=== PATIENT | female | born 1935 | race Caucasian/White ===

== ENCOUNTER 2019-03-15 15:30 | Observation (INO) ==
[2019-03-15] MEDS ORDERED: cefTRIAXone 1,000 MG in 0.9 % Sodium Chloride Mini Bag 100 ML IVPB ONE (19:57)
--- NOTE | 2019-03-15 20:21 | Emergency Department Note ---
Disposition Clinical Impression: Surgical site infection, Chest wall abscess, Cellulitis of chest wall Disposition: Admitted As Inpatient Referrals: Sky,Betzaida Stephenson CNP [Primary Care Provider] - Forms: ED Satisfaction Letter, Work/School Release Time of Disposition: 20:54 General Adult HPI - General Chief complaint: ED General Medical Stated complaint: Mastectomy incision infected Time Seen by Provider: 03/15/19 19:32 Source: patient Limitations: no limitations Nursing Notes Reviewed: Yes Vital Signs Reviewed: Yes - History of Present Illness HPI Narrative: Patient presents emergency Department with chief complaint of progressively worsening redness and swelling of her mastectomy site. Patient states 3-1/2 weeks ago she had mastectomy for breast cancer, she is not currently getting chemotherapy or radiation she states that over the last week she has had progressively increasing redness and swelling, started draining yesterday, with now increased swelling medially. She contacted her surgical office who referred her to the ER. She denies headache neck pain chest pain or shortness of breath she states that the area is sore but that she does not feel like she needs an ything for it she has had no fevers no chills. She denies abdominal pain nausea or vomiting denies leg pain or leg swelling. Denies any other acute concerns. Pain Scale: 5 - Related Data Home Medications Medication Instructions Recorded Confirmed Acetaminophen [Tylenol] 650 mg PO Q6HR PRN 02/05/19 02/20/19 Levothyroxine [Synthroid] 125 mcg PO DAILY 02/05/19 02/20/19 Lisinopril [Zestril] 20 mg PO DAILY 02/05/19 02/20/19 Simvastatin [Zocor] 20 mg PO HS 02/05/19 02/20/19 Tramadol HCl [Ultram] 50 mg PO QID PRN 02/05/19 02/20/19 hydroCHLOROthiazide 12.5 mg PO DAILY 02/05/19 02/20/19 [Hydrochlorothiazide] Allergies Allergy/AdvReac Type Severity Reaction Status Date / Time No Known Allergies Allergy Verified 02/20/19 07:18 All systems ED: reviewed and negative except as stated. Review of Systems: As Per HPI Past Medical History - Past Medical History Medical history: Reports: arthritis, cancer, fibromyalgia, hypertension, thyroid disease, other Surgical history: Reports: orthopedic, other, other Psychiatric history: Reports: no psych history - Social History Smoking Status: Never smoker Smokeless Tobacco Status: No Alcohol use: Reports: none Drug use: Reports: none Physical Exam - General Limitations: no limitations General appearance: alert, in no apparent distress - Head Head exam: atraumatic, normocephalic - Eye Eye exam: Present: normal appearance, PERRL - ENT ENT exam: normal exam, normal oropharynx - Neck Neck exam: Present: normal inspection, full ROM - Chest Chest inspection: Present: symmetric chest wall rise, tenderness, rash, abscess, other (The entire anterior and lateral chest wall is highly erythematous, expanding approximately 5 cm in all directions from her mastectomy site. Along the anterolateral aspect there is a small amount of weeping, with some increased induration along this region, medially, there is approximately a 5 x 6 area of induration and fluctuance, without evidence of wound dehiscence, but underlying the mastectomy incision site. There is some mild associated right axillary lymphadenopathy. No palpable crepitus no necrosis no lymphangitis.). Absent: normal inspection - Respiratory Respiratory exam: Present: normal lung sounds bilaterally, respiratory distress - Cardiovascular Cardiovascular exam: Present: regular rate, normal rhythm - Abdominal Exam Abdominal exam: Present: soft, Non-Tender - Extremities Exam Extremities exam: Present: normal inspection - Expanded Lower Extremity Exam Neurovascular/Tendon exam: Present: normal capillary refill. Absent: pulse deficit, motor deficit, sensory deficit - Back Exam Back exam: Present: normal inspection, full ROM - Neurological Exam Neurological exam: Present: alert, oriented X3, CN II-XII intact - Skin Skin exam: Present: warm, dry, intact, rash, erythema (On chest wall as described above). Absent: normal color Course Vital Signs Temperature 98.3 F 03/15/19 15:58 Pulse Rate 58 03/15/19 15:58 Respiratory Rate 16 03/15/19 15:58 Blood Pressure 185/82 03/15/19 15:58 O2 Sat by Pulse Oximetry 97 03/15/19 15:58 Temperature 98.3 F 03/15/19 15:58 Pulse Rate 58 03/15/19 15:58 Respiratory Rate 16 03/15/19 15:58 Blood Pressure 185/82 03/15/19 15:58 O2 Sat by Pulse Oximetry 97 03/15/19 15:58 Oxygen Delivery Oxygen Delivery Room Air Medical Decision Making - MDM Narrative Medical decision making narrative: The patient had an IV placed CBC basic metabolic profile blood cultures were ordered. She was given IV Rocephin and IV vancomycin. She was offered pain medication which she declined. After my evaluation I contacted surgery Dr. Blankenship, who will come and evaluate the patient in the emergency department. Patient seen by surgery limit this patient for further management. - Medical Records Medical records reviewed: Yes I reviewed the patient's medical records.
--- NOTE | 2019-03-15 20:51 | Acute Care Surgery H&P ---
Date of Encounter: 03/15/19 Time of Encounter: 20:40 Assessment and Plan (1) Infection of superficial incisional surgical site after procedure Current Visit: Yes Status: Acute The assessment and plan as outlined above was discussed with the patient and/or family members who expressed understanding and agreement. All questions were answered. The patient has a 8 cm x 6 cm abscess at the mastectomy surgical site. This will require open incision and drainage as well as lavage and deep tissue cultures. Qualifiers: Encounter type: initial encounter Qualified Code(s): T81.41XA - Infection following a procedure, superficial incisional surgical site, initial encounter History of Present Illness Chief complaint: Abscess right mastectomy site HPI: Ms. Fields is a 83 year old female Who underwent simple mastectomy and sentinel lymph node biopsy 3 weeks ago. She is a T2 N0 with microscopic focus in 1 lymph node. She initially had drains placed these were removed in 1 week. She did well until about a week ago when she developed some pain along the mastectomy site and she actually fell several days ago. She now presents with an 8 cm swelling on the medial aspect of the mastectomy incision. This was prepped with Betadine and I injected a small amount of lidocaine the skin and I introduced an aspiration needle into the fluid collection and aspirated liam pus. She will require incision and drainage of the main operating room with deep cultures and lavage. We will plan to proceed later this evening. Past Med Surg Social Fam HX - Past Medical History Medical history: arthritis, cancer, fibromyalgia, hypertension, thyroid disease, other Additional medical history: malignant neoplasm of upper-inner quadrant of right female breast, unspecified estrogen receptor status. hypothyroidism. adjustment disorder. myositis. hx of phlebitis. squamous cell carcinoma Psychiatric history: no psych history - Past Surgical History Surgical History: orthopedic, other, other Additional surgical history: right carpal tunnel surgery. right leg vein stripping. cervical vertebrae repair. EGD. right mastectomy - Social History Smoking Status: Never smoker Smokeless Tobacco Status: No Alcohol use: none Drug use: none Medications and Allergies Acetaminophen [Tylenol] 650 mg PO Q6HR PRN 02/05/19 [History] Levothyroxine [Synthroid] 125 mcg PO DAILY 02/05/19 [History] Lisinopril [Zestril] 20 mg PO DAILY 02/05/19 [History] Simvastatin [Zocor] 20 mg PO HS 02/05/19 [History] Tramadol HCl [Ultram] 50 mg PO QID PRN 02/05/19 [History] hydroCHLOROthiazide [Hydrochlorothiazide] 12.5 mg PO DAILY 02/05/19 [History] Allergy/AdvReac Type Severity Reaction Status Date / Time No Known Allergies Allergy Verified 02/20/19 07:18 Review of Systems All systems PM: The remainder of the systems were reviewed and are negative General Surgery Exam Initial Vital Signs Temp Pulse Resp BP Pulse Ox 98.3 F 58 16 185/82 97 03/15/19 15:58 03/15/19 15:58 03/15/19 15:58 03/15/19 15:58 03/15/19 15:58 - General physical appearance well developed, well nourished, no distress - Neck no masses, no bruits, trachea midline, no lymphadectomy, no venous distension - Respiratory normal expansion, normal respiratory effort, clear to percussion, clear to auscultation - Cardiovascular Cardiovascular exam: Present: RRR, no murmurs/rubs/gallops - Abdomen Abdomen general surgery: Present: bowel sounds present, soft, non tender - Incision Incision: Present: red, swollen (Fluctuant area medially was sterilely aspirated and demonstrated pus) - Neurologic Present: CN 2-12 grossly intact, normal coordination, normal sensation - Psychiatric Psychiatric general surgery: Present: appropriate, oriented to person, oriented to place, oriented to time, speech is normal, memory intact Results - Labs All other labs normal.
--- NOTE | 2019-03-15 21:17 | Anesthesia Evaluation PreOp ---
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 right carpal tunnel surgery. right leg vein stripping. cervical vertebrae repair. EGD.), Psuedocholineserase Def. (Right mastectomy/axially ln dissection 02-20-19,) Alcohol Use: none Drug use: none Medications and Allergies Acetaminophen [Tylenol] 650 mg PO Q6HR PRN 02/05/19 [History] Levothyroxine [Synthroid] 125 mcg PO DAILY 02/05/19 [History] Lisinopril [Zestril] 20 mg PO DAILY 02/05/19 [History] Simvastatin [Zocor] 20 mg PO HS 02/05/19 [History] Tramadol HCl [Ultram] 50 mg PO QID PRN 02/05/19 [History] hydroCHLOROthiazide [Hydrochlorothiazide] 12.5 mg PO DAILY 02/05/19 [History] Allergy/AdvReac Type Severity Reaction Status Date / Time No Known Allergies Allergy Verified 02/20/19 07:18 - Meds/Allergy Pre-op Review Medications Reviewed: Yes Allergies Reviewed: Yes Beta Blockers on Current Med List: No Anesthesia Results - Labs 03/15/19 20:46 03/15/19 20:46 Laboratory Tests 01/09/19 02/15/19 02/15/19 09:12 08:41 08:41 WBC 4.2 L Hgb 12.1 Hct 38.9 Plt Count 106 L Sodium 140 Potassium 3.9 Chloride 104 Carbon Dioxide 26 BUN 19 Creatinine 1.07 Est GFR ( Amer) 59 L Est GFR (Non-Af Amer) 49 L BUN/Creatinine Ratio 20 Glucose 88 Calculated Osmolality 292 Calcium 9.6 - Imaging EKG: report reviewed, image reviewed (SINUS RHYTHM INCOMPLETE RIGHT BUNDLE BRANCH BLOCK POSSIBLE LEFT VENTRICULAR HYPERTROPHY) Anesthesia Exam Last Vital Signs Temp 98.3 F 03/15/19 15:58 Pulse 64 03/15/19 20:50 Resp 16 03/15/19 20:50 BP 177/94 03/15/19 20:50 Pulse Ox 100 03/15/19 20:50 Weight: 52 kg - HEENT Mallampati: II Teeth: Edentulous Oral Opening: Greater than 3 - DENTAL SERVICE CHIEF LOC: Oriented - Cardiac Rhythm: Regular Murmur: None - Pulmonary Breath Sounds: bilateral Clear Respiratory Effort: Symmetrical Anesthesia Assess/Plan ASA Score: 3 Level of consciousness: Cooperative Anesthetic Plan: General Monitoring Plan: Standard Monitors Recovery Plan: PACU
[2019-03-15 21:21] LABS: Basophils # 0.1 K/mcL (0.0-0.2); Basophils % 0.9 %; Eosinophils # 0.4 K/mcL (0.0-0.6); Eosinophils % 7.1 %; Hematocrit 35.1 % (35.3-44.9); Hemoglobin 11.1 g/dL (11.5-15.4); Immature Granulocytes % 0.7 % (0-4); Lymphocytes # 2.1 K/mcL (0.6-4.6); Lymphocytes % 36.6 %; Mean Corpuscular HGB Conc 31.6 g/dL (31.6-35.5); Mean Corpuscular Hemoglobin 29.4 pg (28.0-33.3); Mean Corpuscular Volume 92.9 fL (83.0-100.0); Mean Platelet Volume 9.8 fL (9.4-12.4); Monocytes # 0.8 K/mcL (0.0-1.3); Monocytes % 13.2 %; Neutrophils # 2.4 K/mcL (1.6-8.9); Platelet Count 131 K/mcL (140-400); Red Blood Count 3.78 M/mcL (3.82-4.97); Red Cell Distribution Width 12.1 % (11.5-14.5); Segmented Neutrophils % 41.5 %; White Blood Count 5.7 K/mcL (4.3-11.1)
[2019-03-15] MEDS ORDERED: *HR* FentaNYL (PF) 100 MCG/2 ML VIAL ONE (21:23)
[2019-03-15] MEDS ORDERED: *HR* Propofol 200 MG/20 ML VIAL IVP ONE (21:23)
[2019-03-15] MEDS ORDERED: Lidocaine -MPF 2% 2 ML VIAL ONE (21:30)
[2019-03-15 21:31] LABS: Potassium 4.6 mEq/L (3.5-5.1)
[2019-03-15 21:32] LABS: Calcium 9.3 mg/dL (8.6-10.3)
[2019-03-15] MEDS ORDERED: traMADol 50 MG TABLET PO PRN (23:07)
[2019-03-15] MEDS ORDERED: Dexamethasone 4 MG/ML VIAL ONE (23:20)
[2019-03-15] MEDS ORDERED: Ondansetron 4 MG/2 ML VIAL ONE (23:20)
[2019-03-15] MEDS ORDERED: EPHEDrine 50 MG/ML VIAL ONE (23:28)
--- NOTE | 2019-03-15 23:45 | Operative Note ---
Date of procedure: 03/15/19 Pre-op diagnosis: Right mastectomy abscess Post-op diagnosis: same Procedure: Incision and drainage of right mastectomy abscess. Antibiotic lavage Anesthesia: FERMIN Surgeon: Haja Blankenship Was there an employment assistant present: No Estimated blood loss (cc): 10 Specimen: Aerobic and anaerobic cultures Condition: stable Disposition: PACU Procedure in Detail: In the emergency room I evaluated the patient and aspirated the fluid collection under sterile conditions. I removed 20 mL of pus. At that point I decided to perform a formal incision and drainage in the operating room secondary to patient discomfort. After informed consent the patients taking major operating suite placed in the supine position and given adequate general endotracheal anesthesia. The patient was identified and the lateralizing moses was identified. Timeout was taken. I made an incision overlying the large fluid collection medially. I made a 6 cm incision I removed about 30 mL of creamy white pus. I obtained aerobic and anaerobic cultures from the deep wound. There was no necrotic tissue. There is also an area of skin breakdown on the small area of fluctuance on the lateral portion the incision. I opened this and there was no pus only lymphatic fluid. Both areas were manually debrided with a lap sponge and then I used the Ortho- lav suction lavage with antibiotic. Once both cavities were fully lavage I decided to leave the skin open in anticipation of using a negative pressure wound dressing in the near future. Both wounds were packed with iodoform. The patient tolerated the procedure well and was transferred to recovery in stable condition
--- NOTE | 2019-03-16 00:24 | Anesthesia Evaluation Post Op ---
Date of Encounter: 03/16/19 Time of Encounter: 00:24 - Vital Signs Vital Signs: Last Vital Signs Temp 98.2 F 03/16/19 00:22 Pulse 55 03/16/19 00:22 Resp 12 03/16/19 00:22 BP 161/80 03/16/19 00:22 Pulse Ox 97 03/16/19 00:22 - Lungs Lungs: Clear Ascult./Percussion - Airway Airway: Non-obstructed - Cardiovascular Regular Rate, Baseline Rhythm - Mental Status Mental Status: Alert & Oriented, Answers Appropriately - Pain Pain Scale: 1 - Nausea Vomiting Nausea Vomiting: Not Present - Hydration Hydration: NPO - Discharge PostOp Status: Transfer Patient to floor
[2019-03-16] MEDS ORDERED: 0.9 % Sodium Chloride 1,000 ML IVC SCH (00:59)
[2019-03-16] MEDS ORDERED: *HR* OxyCODONE/APAP 10/325 TABLET PO PRN (00:59)
[2019-03-16 06:58] VITALS: BP 155/71
--- NOTE | 2019-03-16 07:58 | AcuteCareSurgery Progress Note ---
Date of Encounter: 03/16/19 Time of Encounter: 07:30 - Assessment and Plan (1) Infection of superficial incisional surgical site after procedure Current Visit: Yes Status: Acute * 83 year old female who underwent simple mastectomy and sentinel lymph node biopsy for T2 N0 with microscopic focus in 1 lymph node 3 weeks ago. * now presented with an 8 cm swelling on the medial aspect of the mastectomy incision * Incision and drainage of right mastectomy abscess. Antibiotic lavage done on 03/15/2019 * Today 1st Post op day , patient is stable, vitals are within normal limit, temperature 98F. * Patient gradually getting better, no fever, pain is less, but still feeling discomfort. * Recent labs : WBC 5.7 , Hb 11.1 Plan: * Continue IV antibiotics * Adequate pain management, monitor temperature and vitals * Monitor intake and output including drain * Waiting for pus culture report, we will adjust antibiotic accordingly. Qualifiers: Encounter type: initial encounter Qualified Code(s): T81.41XA - Infection following a procedure, superficial incisional surgical site, initial encounter Subjective Patient reports: no new complaints, feels better, pain is less, bowel movement, afebrile Narrative: She is 83 year old female who underwent simple mastectomy and sentinel lymph node biopsy 3 weeks ago for T2 N0 with microscopic focus in 1 lymph node. Now presented with an 8 cm swelling on the medial aspect of the mastectomy incision. Today's is first POD after I/D and antibiotic lavage. Patient is progressively getting better, no fever, pain is less. Vital signs stable; blood pressure 155/71, pulse 61, temperature 97.7 F .We are waiting for pus culture report. We will continue IV antibiotics for a few days and closely monitor while she is in patient. Objective Vital Signs - Last 8 Hours Temp Pulse Resp BP Pulse Ox 03/16/19 06:57 97.7 F 61 15 155/71 97 03/16/19 03:30 97.6 F 52 16 158/81 96 03/16/19 02:30 97.7 F 53 16 151/80 96 03/16/19 01:30 58 16 168/86 98 03/16/19 01:00 98.0 F 56 16 180/100 98 03/16/19 00:30 97.5 F L 56 16 171/84 98 03/16/19 00:22 98.2 F 55 12 161/80 97 03/16/19 00:12 53 10 162/84 97 03/16/19 00:02 54 10 160/80 98 Intake and Output 03/15/19 03/15/19 03/16/19 15:59 23:59 07:59 Intake Total 300 / 300 120 / 120 Output Total Balance 300 / 300 110 / 110 Intake: IV Fluids 300 / 300 Vancocin 1,000 MG In 0.9 % 200 / 200 Sodium Chloride 250 ML @ 167 mls/hr IVPB ONCE ONE Rx#: [id number] Rocephin 1,000 MG In 0.9 % 100 / 100 Sodium Chloride (Mini-Bag +) 100 ML @ 200 mls/hr IVPB ONCE ONE Rx#:[id number] Oral 120 / 120 Output: Estimated Blood Loss Other: # Voids 1 # Bowel Movements 0 Weight 52.163 kg - General physical appearance well developed, well nourished, no distress - Eyes PERRL, normal ocular movement - ENT normal nares, normal mucosa, no congestion - Neck Neck exam: trachea midline, no lymphadectomy, no venous distension - Respiratory normal expansion, normal respiratory effort, clear to percussion - Cardiovascular Cardiovascular exam: Present: RRR, regular rhythm, no murmurs/rubs/gallops - Abdomen Abdomen: Present: bowel sounds present, soft, non tender. Absent: organomegaly, masses, guarding, rebound, rigid Hernia: none - Incision Incision: Present: draining, red, swollen, erythema - Integumentary no rash - Neurologic CN 2-12 grossly intact, normal coordination - Musculoskeletal normal gait - Psychiatric oriented to time, oriented to person, oriented to place, speech is normal - Labs 03/15/19 20:46 03/15/19 20:46 Diabetes panel 03/15/19 Range/Units 20:46 Sodium 140 (136-145) mEq/L Potassium 4.6 (3.5-5.1) mEq/L Chloride 105 (98-107) mEq/L Carbon Dioxide 24 (23-29) mEq/L BUN 16 (8-23) mg/dL Creatinine 1.10 (0.60-1.20) mg/dL Glucose 79 (70-105) mg/dL Calcium 9.3 (8.6-10.3) mg/dL Calcium panel 03/15/19 Range/Units 20:46 Calcium 9.3 (8.6-10.3) mg/dL Pituitary panel 03/15/19 Range/Units 20:46 Sodium 140 (136-145) mEq/L Potassium 4.6 (3.5-5.1) mEq/L Chloride 105 (98-107) mEq/L Carbon Dioxide 24 (23-29) mEq/L BUN 16 (8-23) mg/dL Creatinine 1.10 (0.60-1.20) mg/dL Glucose 79 (70-105) mg/dL Calcium 9.3 (8.6-10.3) mg/dL Adrenal panel 03/15/19 Range/Units 20:46 Sodium 140 (136-145) mEq/L Potassium 4.6 (3.5-5.1) mEq/L Chloride 105 (98-107) mEq/L Carbon Dioxide 24 (23-29) mEq/L BUN 16 (8-23) mg/dL Creatinine 1.10 (0.60-1.20) mg/dL Glucose 79 (70-105) mg/dL Calcium 9.3 (8.6-10.3) mg/dL Consult Discharge Plan - Plan Referrals: Betzaida Swanson, BRENT [Primary Care Provider] -
--- NOTE | 2019-03-16 08:17 | Discharge Summary ---
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 There remains a small amount of erythema but no induration. Moderate amount of clear drainage noted on the dressings.) - Neurologic Present: CN 2-12 grossly intact, normal sensation - Musculoskeletal Present: normal posture - Psychiatric Psychiatric general surgery: Present: A&Ox3 - Hospital Course Hospital course: Ms. Fields is a 83 year old female who presented on 03/15/2019 with an 8 x 6 cm abscess at the mastectomy site. She was taken to the operating room where she underwent incision and drainage of the area. Moderate amount of pus and lymph fluid were noted. Cultures are pending. Her white blood cell count is normal and she is afebrile. Patient desires to be DC'd today. We will begin discharge planning to home with a follow-up in the office next week. Home health care has been consulted for wound care/packing. Notably, she may require a wound VAC placement given the amount of lymph fluid drainage. She is being sent home on Augmentin, we will follow for cultures and reassessed next week. - Time Spent with Patient Total time spent providing and/or coordinating discharge services: - Discharge Medications Prescriptions: New Docusate Sodium [Colace] 100 mg PO BID PRN #30 capsule PRN Reason: Constipation Ibuprofen 800 mg PO Q8H PRN #42 tablet PRN Reason: Mild Pain OxyCODONE/APAP 5/325 [Percocet 5/325 MG] 1 each PO Q6HR PRN 7 Days #28 tablet PRN Reason: Pain Ondansetron ODT [Zofran ODT] 4 mg SL Q4HR PRN #30 tab.rapdis PRN Reason: Nausea Amoxicillin/Clavulanate [Augmentin] 875 mg PO BIDWM 14 Days #28 tablet Continued Tramadol HCl [Ultram] 50 mg PO QID PRN PRN Reason: Pain Simvastatin [Zocor] 20 mg PO HS Levothyroxine [Synthroid] 125 mcg PO DAILY hydroCHLOROthiazide [Hydrochlorothiazide] 12.5 mg PO DAILY Acetaminophen [Tylenol] 650 mg PO Q6HR PRN PRN Reason: Pain Lisinopril [Zestril] 20 mg PO DAILY Home Medications: Acetaminophen [Tylenol] 650 mg PO Q6HR PRN 02/05/19 [History] Levothyroxine [Synthroid] 125 mcg PO DAILY 02/05/19 [History] Lisinopril [Zestril] 20 mg PO DAILY 02/05/19 [History] Simvastatin [Zocor] 20 mg PO HS 02/05/19 [History] Tramadol HCl [Ultram] 50 mg PO QID PRN 02/05/19 [History] hydroCHLOROthiazide [Hydrochlorothiazide] 12.5 mg PO DAILY 02/05/19 [History] Amoxicillin/Clavulanate [Augmentin] 875 mg PO BIDWM 14 Days #28 tablet 03/16/19 [Rx] Docusate Sodium [Colace] 100 mg PO BID PRN #30 capsule 03/16/19 [Rx] Ibuprofen 800 mg PO Q8H PRN #42 tablet 03/16/19 [Rx] Ondansetron ODT [Zofran ODT] 4 mg SL Q4HR PRN #30 tab.rapdis 03/16/19 [Rx] OxyCODONE/APAP 5/325 [Percocet 5/325 MG] 1 each PO Q6HR PRN 7 Days #28 tablet 03/16/19 [Rx] Allergies/Adverse Reactions: Allergy/AdvReac Type Severity Reaction Status Date / Time No Known Allergies Allergy Verified 02/20/19 07:18 Date of admission: 03/15/19 22:15 Primary care physician: Betzaida Swanson CNP Consults: 03/16/19 00:50 Consult to Pastoral Services [CONS] Routine Comment: Discharging clinician: Nkechi Awan Anticipated date of discharge: 03/16/19 Labs on day of discharge: Labs from last 24 hours 03/15/19 03/15/19 20:46 20:46 WBC 5.7 RBC 3.78 L Hgb 11.1 L Hct 35.1 L MCV 92.9 MCH 29.4 MCHC 31.6 RDW 12.1 Plt Count 131 L MPV 9.8 Immature Gran % 0.7 Seg Neutrophils % 41.5 Lymphocytes % 36.6 Monocytes % 13.2 Eosinophils % 7.1 Basophils % 0.9 Neutrophils # 2.4 Lymphocytes # 2.1 Monocytes # 0.8 Eosinophils # 0.4 Basophils # 0.1 Sodium 140 Potassium 4.6 Chloride 105 Carbon Dioxide 24 BUN 16 Creatinine 1.10 Est GFR ( Amer) 57 L Est GFR (Non-Af Amer) 47 L BUN/Creatinine Ratio 15 Glucose 79 Calculated Osmolality 290 Calcium 9.3 Preliminary micro results at discharge 03/15/19 23:30 Anaerobic Culture - Preliminary Right Breast Culture is incubating. 03/15/19 23:30 Wound Culture - Preliminary Right Breast Culture is incubating. 03/15/19 20:40 Blood Culture - Preliminary Peripheral Venipuncture Culture is incubating and being continuously monitored for growth. Final report to follow. 03/15/19 20:45 Blood Culture - Preliminary Peripheral Venipuncture Culture is incubating and being continuously monitored for growth. Final report to follow. - Patient Status Disposition: Home Health Service Condition: Good Functional capacity at discharge: independent ambulation Overall status at discharge: patient is progressing back to baseline - Discharge Instructions Instructions: Abscess (GEN) Follow Up With: Betzaida Swanson CNP [Primary Care Provider] - Mikel Vicente MD [Partnered Physician] - 03/21/19 8:00 am Additional Instructions: Daily wound care: remove dressing and packing. Shower with antibacterial soap. Repack with 1/2 inch iodoform gauze. Apply Alkare wipes to the outer skin. Apply a dry dressing. Tape to secure. If you continue to have large amounts of drainage, notify the office. You may need to be seen sooner or have the process started for a wound vac application - Diet and Activity Activity: increase activity as tolerated Diet: advance to your usual diet
[2019-03-16] MEDS ORDERED: traMADol 50 MG TABLET PO SCH (09:00)
[2019-03-16] MEDS ORDERED: Lisinopril 20 MG TABLET PO SCH (09:00)
[2019-03-16] MEDS ORDERED: Piperacillin/Tazobactam 3.375 GM in 0.9 % Sodium Chloride Mini Bag 100 ML IVPB ONE (12:51)
--- NOTE | 2019-03-16 13:13 | Physician Discharge Referral ---
Home Health/Hosp Referral Info Transfer to: Home Health Attending Provider: Dr. Mikel Vicente Provider in Charge Post Discharge: Other (Same) - Diagnosis (1) Chest wall abscess Priority: Primary Status: Acute (2) Status post mastectomy Priority: Secondary Status: Chronic - Respiratory Orders Smoking Cessation: Smoking cessation has been advised. For more information, call the [place] Tobacco Quit Line at 4-773-EXQS-NOW. - Dressing/Wound Care Site: Right mastectomy site Type of Dressing/Treatments w/Frequency: Daily wound care: remove dressing and packing. Shower with antibacterial soap. Repack with 1/2 inch iodoform gauze. Apply Alkare wipes to the outer skin. Apply a dry dressing. Tape to secure. If you continue to have large amounts of drainage, notify the office. You may need to be seen sooner or have the process started for a wound vac application - Diet/Nutrition Diet/Nutrition Orders: Regular - Activity Activity Orders: Up ad giles - Services Needed Following services are medically necessary services: Nursing Other Treatments: Take antibiotics as directed. She may take her home dose of tramadol daily. She has been given a prescription for oxycodone to be used approximately one hour prior to dressing changes (may also be used as needed according to directions). - Transfer Medications Prescriptions: Amoxicillin/Clavulanate [Augmentin] 875 mg PO BIDWM 14 Days #28 tablet Docusate Sodium [Colace] 100 mg PO BID PRN #30 capsule PRN Reason: Constipation Ibuprofen 800 mg PO Q8H PRN #42 tablet PRN Reason: Mild Pain OxyCODONE/APAP 5/325 [Percocet 5/325 MG] 1 each PO Q6HR PRN 7 Days #28 tablet PRN Reason: Pain Ondansetron ODT [Zofran ODT] 4 mg SL Q4HR PRN #30 tab.rapdis PRN Reason: Nausea Home Medications: Acetaminophen [Tylenol] 650 mg PO Q6HR PRN 02/05/19 [History] Levothyroxine [Synthroid] 125 mcg PO DAILY 02/05/19 [History] Lisinopril [Zestril] 20 mg PO DAILY 02/05/19 [History] Simvastatin [Zocor] 20 mg PO HS 02/05/19 [History] Tramadol HCl [Ultram] 50 mg PO QID PRN 02/05/19 [History] hydroCHLOROthiazide [Hydrochlorothiazide] 12.5 mg PO DAILY 02/05/19 [History] Amoxicillin/Clavulanate [Augmentin] 875 mg PO BIDWM 14 Days #28 tablet 03/16/19 [Rx] Docusate Sodium [Colace] 100 mg PO BID PRN #30 capsule 03/16/19 [Rx] Ibuprofen 800 mg PO Q8H PRN #42 tablet 03/16/19 [Rx] Ondansetron ODT [Zofran ODT] 4 mg SL Q4HR PRN #30 tab.rapdis 03/16/19 [Rx] OxyCODONE/APAP 5/325 [Percocet 5/325 MG] 1 each PO Q6HR PRN 7 Days #28 tablet 03/16/19 [Rx] Allergies/Adverse Reactions: Allergy/AdvReac Type Severity Reaction Status Date / Time No Known Allergies Allergy Verified 02/20/19 07:18 Certification: Further, I certify that my clinical findings support that this patient is homebound (i.e. absences from home require considerable and taxing effort and are for medical reasons or latter day services or infrequently or short duration when for other reasons) because: Homebound Reason: Post-surgery restriction and or conditions limit ability to leave home, Leaving home requires considerable and taxing effort due to condition Attestation: My signature below is to certify that this patient is under my care and that I, or nurse practitioner, or a physician's assistant elementary teacher working with me, has a [id number] encounter with this patient.
== END 2019-03-16 16:07 | disposition home health service (06) ==
LOC: EMEROOARM 15:30 → 3ANU 15:30
PROVIDERS: ADMIT Surgery; ATTEND Surgery

== ENCOUNTER 2022-02-28 16:53 | Inpatient (IN) ==
[2022-02-28] MEDS ORDERED: 0.9 % Sodium Chloride 1,000 ML IVC ONE (17:37)
[2022-02-28 18:51] LABS: Albumin 4.2 g/dL (3.5-5.7); Albumin/Globulin Ratio 1.6 (1.1-2.2); Bilirubin,Direct 0.1 mg/dL (0.0-0.2); Bilirubin,Indirect 0.8 mg/dL (0.0-1.0); Bilirubin,Total 0.9 mg/dL (0.3-1.0); Calcium 14.1 mg/dL (8.6-10.3); Globulin 2.7 g/dL (2.4-3.5); Total Protein 6.9 g/dL (6.4-8.9); Troponin I 0.08 ng/mL (< 0.04)
[2022-02-28 19:00] LABS: Hemoglobin 13.2 g/dL (11.5-15.4)
[2022-02-28 19:02] LABS: Hematocrit 39.9 % (35.3-44.9); Mean Corpuscular HGB Conc 33.1 g/dL (31.6-35.5); Mean Corpuscular Hemoglobin 29.1 pg (28.0-33.3); Mean Corpuscular Volume 87.9 fL (83.0-100.0); Mean Platelet Volume 9.7 fL (9.4-12.4); Red Blood Count 4.54 M/mcL (3.82-4.97); White Blood Count 8.1 K/mcL (4.3-11.1)
[2022-02-28 19:06] LABS: Bilirubin,Urine Negative (Negative); Blood,Urine Negative (Negative); Clarity,Urine Clear (Clear); Color,Urine Light-Yellow (Yellow); Glucose,Urine (UA) Normal (Normal); Ketones,Urine Negative (Negative); Leukocyte Esterase,Urine Negative (Negative); Nitrite,Urine Negative (Negative); PH,Urine 5.5 pH Units (5.0-8.0); Protein,Urine Negative (Neg-Trace); Specific Gravity,Urine 1.015 (1.010-1.025); Urobilinogen,Urine Normal (Normal)
[2022-02-28] MEDS ORDERED: Potassium Chloride Elixir 20 MEQ/15 ML UDC PO ONE (19:27)
[2022-02-28] MEDS ORDERED: Melatonin 3 MG TABLET PO PRN (21:45)
[2022-02-28] MEDS ORDERED: Naloxone 0.4 MG/ML INJ IVP PRN (21:45)
[2022-02-28] MEDS: 0.9 % Sodium Chloride 1,000 ML IVC SCH (22:24)
[2022-02-28 23:04] LABS: Parathyroid Hormone Intact 15.6 pg/ml (10.0-65.0)
[2022-02-28] MEDS ORDERED: Td (TENIVAC) Vaccine 0.5 ML VIAL IM ONE (23:28)
[2022-03-01 00:32] LABS: Basophils % 0.7 %; Hemoglobin 13.2 g/dL (11.5-15.4); Immature Granulocytes % 0.7 % (0-4); Mean Platelet Volume 9.4 fL (9.4-12.4); Segmented Neutrophils % 62.3 %
[2022-03-01 00:34] LABS: Basophils # 0.1 K/mcL (0.0-0.2); Eosinophils # 0.2 K/mcL (0.0-0.6); Hematocrit 40.7 % (35.3-44.9); Immature Platelets 2.1 % (1.1-6.1); Lymphocytes # 1.7 K/mcL (0.6-4.6); Lymphocytes % 22.1 %; Mean Corpuscular HGB Conc 32.4 g/dL (31.6-35.5); Mean Corpuscular Hemoglobin 28.9 pg (28.0-33.3); Mean Corpuscular Volume 89.1 fL (83.0-100.0); Monocytes # 0.9 K/mcL (0.0-1.3); Monocytes % 12.2 %; Neutrophils # 4.7 K/mcL (1.6-8.9); Platelet Count 105 K/mcL (140-400); Red Blood Count 4.57 M/mcL (3.82-4.97); Red Cell Distribution Width 12.9 % (11.5-14.5); White Blood Count 7.6 K/mcL (4.3-11.1)
[2022-03-01 00:43] LABS: Albumin 3.5 g/dL (3.5-5.7); Albumin/Globulin Ratio 1.5 (1.1-2.2); Bilirubin,Total 0.9 mg/dL (0.3-1.0); Calcium 12.5 mg/dL (8.6-10.3); Globulin 2.4 g/dL (2.4-3.5); Magnesium 1.6 mg/dL (1.6-2.6); Phosphorous 2.3 mg/dL (2.7-4.5); Potassium 3.6 mEq/L (3.5-5.1); Total Protein 5.9 g/dL (6.4-8.9)
[2022-03-01] MEDS: 0.9 % Sodium Chloride 1,000 ML IVC SCH ×2 (04:02→13:34)
[2022-03-01] MEDS: *HR* Heparin 5,000 UNIT/ML VIAL SQ SCH ×2 (05:32→17:27)
[2022-03-01 14:42] LABS: VBG Ionized Calcium 1.41 mmol/L (1.15-1.35)
[2022-03-01] MEDS ORDERED: *HR* LORazepam 2 MG/ML VIAL IVP ONE (22:33)
[2022-03-02] MEDS: 0.9 % Sodium Chloride 1,000 ML IVC SCH ×2 (02:10→15:16)
[2022-03-02] MEDS ORDERED: Haloperidol Lactate 5 MG/ML VIAL IVP ONE ×2 (02:50→14:51)
[2022-03-02 03:21] LABS: Immature Granulocytes % 0.6 % (0-4); Lymphocytes % 22.4 %; Monocytes % 10.8 %
[2022-03-02 03:24] LABS: Basophils # 0.1 K/mcL (0.0-0.2); Basophils % 0.7 %; Eosinophils # 0.1 K/mcL (0.0-0.6); Eosinophils % 1.6 %; Hematocrit 34.9 % (35.3-44.9); Hemoglobin 11.5 g/dL (11.5-15.4); Immature Platelets 1.6 % (1.1-6.1); Mean Corpuscular Hemoglobin 29.3 pg (28.0-33.3); Mean Platelet Volume 9.7 fL (9.4-12.4); Neutrophils # 4.4 K/mcL (1.6-8.9); Red Blood Count 3.92 M/mcL (3.82-4.97); Red Cell Distribution Width 12.9 % (11.5-14.5); Segmented Neutrophils % 63.9 %; White Blood Count 6.9 K/mcL (4.3-11.1)
[2022-03-02 03:32] LABS: Lymphocytes # 1.6 K/mcL (0.6-4.6); Monocytes # 0.8 K/mcL (0.0-1.3); Platelet Count 97 K/mcL (140-400)
[2022-03-02 03:44] LABS: Albumin 3.4 g/dL (3.5-5.7); Albumin/Globulin Ratio 1.6 (1.1-2.2); Globulin 2.1 g/dL (2.4-3.5); Potassium 3.5 mEq/L (3.5-5.1); Total Protein 5.5 g/dL (6.4-8.9)
[2022-03-02 04:04] LABS: Troponin I 0.17 ng/mL (< 0.04)
[2022-03-02 05:46] LABS: Bilirubin,Direct 0.1 mg/dL (0.0-0.2); Bilirubin,Indirect 0.9 mg/dL (0.0-1.0)
[2022-03-02] MEDS: *HR* Heparin 5,000 UNIT/ML VIAL SQ SCH (06:25)
[2022-03-02] MEDS ORDERED: *HR* Heparin 5,000 UNIT/ML VIAL IVP PRN ×2 (09:55)
[2022-03-02] MEDS ORDERED: *HR* Heparin 5,000 UNIT/ML VIAL IVP ONE (09:55)
[2022-03-02] MEDS ORDERED: Perflutren Lipid Microsphere 1.3 ML in 0.9 % Sodium Chloride 8.7 ML IVP PRN (09:57)
[2022-03-02] MEDS: Heparin 25,000UNIT/250ML 1/2NS 25,000 UNIT/250 ML IV.SOLN IVC SCH (10:17)
[2022-03-02 11:13] LABS: INR 1.3; Prothrombin Time 14.8 Seconds (9.4-12.1)
[2022-03-02 11:19] LABS: Heparin anti-factor XA UFH 1.58 IU/mL (0.30-0.70)
[2022-03-02] MEDS ORDERED: *HR* Labetalol 20 MG/4 ML SYRINGE IVP ONE (12:15)
[2022-03-02 12:58] LABS: Hematocrit 34.8 % (35.3-44.9); Hemoglobin 11.6 g/dL (11.5-15.4); Immature Platelets 2.1 % (1.1-6.1); Mean Corpuscular HGB Conc 33.3 g/dL (31.6-35.5); Mean Corpuscular Hemoglobin 29.2 pg (28.0-33.3); Mean Corpuscular Volume 87.7 fL (83.0-100.0); Red Blood Count 3.97 M/mcL (3.82-4.97); Red Cell Distribution Width 12.8 % (11.5-14.5); White Blood Count 6.7 K/mcL (4.3-11.1)
[2022-03-02] MEDS ORDERED: *HR* Metoprolol 5 MG/5 ML VIAL IVP PRN (13:02)
[2022-03-02] MEDS: NIFEdipine XL (24 HR) 60 MG TAB.ER.24 PO SCH (15:11)
[2022-03-03 04:16] LABS: Albumin 3.6 g/dL (3.5-5.7); Albumin/Globulin Ratio 1.5 (1.1-2.2); Bilirubin,Total 1.2 mg/dL (0.3-1.0); Calcium 9.5 mg/dL (8.6-10.3); Globulin 2.4 g/dL (2.4-3.5)
[2022-03-03] MEDS: 0.9 % Sodium Chloride 1,000 ML IVC SCH ×2 (04:44→17:02)
[2022-03-03] MEDS: NIFEdipine XL (24 HR) 60 MG TAB.ER.24 PO SCH (09:19)
[2022-03-03] MEDS: amLODIPine 5 MG TABLET PO SCH (10:51)
[2022-03-03] MEDS: Magnesium Oxide 400 MG TABLET PO SCH ×2 (10:52→20:07)
[2022-03-03] MEDS: Aspirin Enteric Coated 81 MG Tablet PO SCH (10:52)
[2022-03-03] MEDS: Potassium Effervescent 25 MEQ TABLET.EFF PO SCH ×2 (11:54→17:08)
[2022-03-03] MEDS ORDERED: Acetaminophen 325 MG TABLET PO PRN (13:16)
[2022-03-03] MEDS: Heparin 25,000UNIT/250ML 1/2NS 25,000 UNIT/250 ML IV.SOLN IVC SCH (15:33)
[2022-03-04 05:10] LABS: Magnesium 1.8 mg/dL (1.6-2.6)
[2022-03-04 05:34] LABS: Albumin 3.4 g/dL (3.5-5.7); Albumin/Globulin Ratio 1.5 (1.1-2.2); Bilirubin,Total 0.7 mg/dL (0.3-1.0); Calcium 8.8 mg/dL (8.6-10.3); Globulin 2.3 g/dL (2.4-3.5); Potassium 4.2 mEq/L (3.5-5.1); Total Protein 5.7 g/dL (6.4-8.9)
[2022-03-04] MEDS: 0.9 % Sodium Chloride 1,000 ML IVC SCH (05:36)
[2022-03-04] MEDS ORDERED: Metoprolol XL (24 HR) Succ 25 MG TAB.ER.24H PO SCH (09:00)
[2022-03-04] MEDS: Magnesium Oxide 400 MG TABLET PO SCH (09:17)
[2022-03-04] MEDS: Aspirin Enteric Coated 81 MG Tablet PO SCH (09:18)
[2022-03-04] MEDS: amLODIPine 5 MG TABLET PO SCH (09:18)
[2022-03-04 10:29] VITALS: BP 126/78; PULSE 63; TEMP 98.1; O2SAT 95
[2022-03-04 10:40] LABS: Kappa Qnt Free Light Chains 30.79 mg/L (3.30-19.40); Lambda Qnt Free Light Chains 22.73 mg/L (5.71-26.30)
[2022-03-06 04:11] LABS: Alpha 2 Globulin (PEP) 0.85 g/dL (0.48-1.05); Beta Globulin (PEP) 0.59 g/dL (0.48-1.10)
[2022-03-06 12:45] LABS: IFE Reflexed IFE Done; Immunoglobulin A 116 mg/dL (68-408); Immunoglobulin G 695 mg/dL (768-1632); Immunoglobulin M 171 mg/dL (35-263)
== END 2022-03-04 13:00 | disposition home or self-care (01) | DRG 682 ==
LOC: EMEROOARM 16:53 → 3BNU 16:53 → SUATTDRO 20:45 → 3BNU 21:50 → SUATTDRO 03-02 14:47 → 3BNU 03-02 19:32
PROVIDERS: ADMIT Internal Medicine; ATTEND Registered Nurse